=== PATIENT | female | born 1980 | race Caucasian/White ===

== ENCOUNTER 2024-10-10 12:06 | Emergency (ER) | payer OTHER ==
[~2024-10-10] VITALS: Ht 162.6 cm; Wt 68.5 kg
[~2024-10-10 12:06] MED LIST: KAPSPARGO SPRIN25 MG PO; ONDANSETRON ODT8 MG PO; PERCOCET 5-3251 EACH PO; VAZALORE81 MG PO
--- OUTSIDE RECORDS SUMMARY | 2024-10-10 12:12 | XMS ---
PreManage Notification: MALIHA ACUÑA Security [employer] Se[employer] Events No recent Security Events currently on file CRITERIA MET - [facility] - 2 Visits in 30 Days CARE PROVIDERS -, [facility]ist: School Occupational Therapist Current [place] PHONE: [phone] Chin has no Care Guidelines for this patient. Maddie VISIT COUNT (12 MO.) 3 [facility] TOTAL 3 NOTE: Visits indicate total known visits. ED/UCC VISIT TRACKING (12 MO.) 10/10/2024 12:07 [facility] TYPE: Emergency COMPLAINT: - CHEST PAIN 10/09/2024 14:52 [facility] [place] TYPE: Emergency COMPLAINT: - COLD SYMPTOMS 08/22/2024 11:42 [facility] [place] TYPE: Emergency COMPLAINT: - VOMITING DIAGNOSES: - Allergy status to narcotic agent - Dehydration - Heart failure, unspecified - custodial (current) use of aspirin - Nausea with vomiting, unspecified - Other penitentiary (current) drug therapy INPATIENT VISIT TRACKING (12 MO.) No inpatient visits to display in this time frame [email or web address]
[2024-10-10 12:35] LABS: BASOPHILS 0.6 % (0-2); HEMATOCRIT 44.3 % (35.0-50.0); HEMOGLOBIN 15.1 g/dL (12.0-18.0); LYMPHOCYTES 34.6 % (24-44); MCH 30.6 (27-36); MCV 89.9 fl (81-99); MONOCYTES 7.7 % (0-12); NEUTROPHILS 54.1 % (39-80); PLATELET COUNT 222 K/uL (140-440); RBC 4.93 M/ul (4.3-5.7); RDW 13.4 (10.5-15.0)
[2024-10-10 12:50] LABS: ALBUMIN 3.5 g/dL (3.4-5.0); ALBUMIN/GLOBULIN RATIO 0.9 (1.1-2.4); ANION GAP 13.3 (7-21); BILIRUBIN, TOTAL 0.2 ng/dL (0.2-1.0); BUN/CREATININE RATIO 15.49 (6.0-28.6); CALCIUM 8.9 mg/dL (8.5-10.1); CREATININE, SERUM 0.71 mg/dL (0.55-1.02); POTASSIUM 4.3 mmol/L (3.5-5.1); PROTEIN, TOTAL 7.4 g/dL (6.4-8.2)
[2024-10-10 13:34] VITALS: BP 112/75
--- NOTE | 2024-10-11 18:54 | EKG ---
[facility] [address] [facility] [place], [place] [address] Signed Normal sinus rhythm Rightward axis Incomplete left bundle branch block Biventricular hypertrophy Nonspecific ST and T wave abnormality Prolonged QT Abnormal ECG No previous ECGs available Confirmed by Hemalatha Paige MD ([id number]) on 10/11/2024 6:54:24 PM Electronically Signed By: HEMALATHA PAIGE MD 10/11/24 1854 PATIENT NAME: MALIHA ACUÑA Electrocardiogram DATE OF : 82 PHYSICIAN: HEMALATHA PAIGE MD REPORT #: [id number] REPORT IS CONFIDENTIAL AND NOT TO BE RELEASED WITHOUT AUTHORIZATION
== END 2024-10-10 13:34 | disposition left against medical advice (07) ==
LOC: ED 12:06
PROVIDERS: Emergency Medicine
DX: R07.9 Chest pain, unspecified (principal); R91.8 Other nonspecific abnormal finding of lung field; Z53.29 Procedure and treatment not carried out because of patient's decision for other reasons; Z88.5 Allergy status to narcotic agent; Z79.82 Long term (current) use of aspirin; Z79.899 Other long term (current) drug therapy
CPT/HCPCS: 36415; 71045; 80053; 83880; 84484; 85025; 93005; 93010; 99285-25